=== PATIENT | female | born 1985 | race Caucasian/White ===

== ENCOUNTER 2023-02-16 13:38 | Outpatient (CLI) | payer BC, SELFPAY ==
--- NOTE | 2023-02-16 13:40 | CRLHL7_ITS ---
For Patients: As a result of the Cures Act, medical imaging exams and procedure reports are released immediately into your electronic medical record. You may view this report before your referring provider. If you have questions, please contact your health care provider. BILATERAL DIGITAL SCREENING MAMMOGRAM WITH TOMOSYNTHESIS AND COMPUTER-AIDED DETECTION CLINICAL HISTORY: Routine screening exam. COMPARISON: None. TECHNIQUE: Digital mammogram in CC and MLO projections including computer-aided detection (CAD). Tomosynthesis utilized. BREAST COMPOSITION: The breasts are heterogeneously dense, which may obscure small masses. FINDINGS: RIGHT Breast: No suspicious findings. LEFT Breast: Focal nodular density is present within the upper inner quadrant LEFT breast 6 cm from the nipple. IMPRESSION: LEFT breast asymmetry/mass. RECOMMENDATIONS: Additional mammographic views of the LEFT breast including 3D spot compression CC/MLO. LEFT breast ultrasound may also be required. BI-RADS Category 0: Incomplete: Need Additional Imaging Evaluation and/or Prior Mammograms for Comparison The [facility] will contact the patient for follow-up. A lay language report of this examination will be provided to the patient. Dictated by Kwasi Gallegos MD @ 02/17/2023 1:39:30 PM magdaj/Dictated by: Kwasi Gallegos MD @ 02/17/2023 1:39:00 PM (Electronically Signed)
--- OUTSIDE RECORDS SUMMARY | 2023-02-16 13:41 | XMS_ITS | Patient Health Record ---
Author Name Unknown Organization [facility] Address [address] [place] [address] Care Team Providers Care Records Management Associate Name Role Phone JACKI IRELAND Unavailable [phone] ALLERGIES Allergen (clinical drug ingredient) Drug/Non Drug Allergy documented on EMR Reaction Allergy Type Onset Date Status Substance with sulfonamide structure and antibacterial mechanism of action (substance) Sulfa Drugs (uncoded) nausea and vomiting Allergy Active Watermelon Watermelon (uncoded) stomach upset Allergy Active codeine Codeine hives Drug Allergy 11/20/2020 Active Shaniko Shaniko stomach upset Allergy Active morphine Morphine hives Drug Allergy 11/20/2020 Active RESULTS Component Value Reference Range Notes IRON, TIBC AND FERRITIN PANE L Reviewed date:12/17/2022 08:30:36 AM Interpretation: Performing Lab:JACINTO [facility] [place] [facility]ieselteScaleDBLakeview HospitalPlblVI[address] Live Rivas Notes/Report: 0 0 0 0 0 0 0 0 0 0 0 0 0 0 IRON, TOTAL 98 40-190 mcg/dL IRON BINDING CAPACITY 362 250-450 mc g/dL (calc) % SATURATION 27 16-45 % (calc) FERRITIN 20 16-154 ng/mL CELIAC DISEASE COMPREHENSIVE PANEL Reviewed date:12/18/2022 11:55:52 AM Interpretation: Performing Lab:JACINTO [facility] [address] [employer], [facility] ManorPoyaHX[address] Live Rivas Notes/Report: 0 0 0 0 0 0 0 0 0 0 0 0 0 0 INTERPRETATION No serological evidence of celiac disease. tTG IgA may normalize in individuals with celiac disease who maintain a gluten-free diet. Consider HLA DQ2 and DQ8 testing to rule out celiac disease. Celiac disease is extremely rare in the absence of DQ2 or DQ8. TISSUE TRANSGLUTAMINASE AB, IGA <1.0 Value Interpretation ----- <15.0 Antibody not detected > or = 15.0 Antibody detected IMMUNOGLOBULIN A 203 47-310 mg/dL THYROGLOBULIN PANEL Reviewed date:12/17/2022 10:52:42 AM Interpretation: Performing Lab:JACINTO [facility] FundPigafeL[address] Live Rivas Notes/Report: 0 0 0 0 0 0 0 0 0 0 0 0 0 0 THYROGLOBULIN ANTIBODIES 1 < or = 1 IU/mL THYROGLOBULIN 18.2 Reference Range: Intact Thyroid 2.8-40.9 Athyrotic <0.1 Note: Abnormal flagging is based on the reference interval for patients with intact thyroid. This test was performed using the Signal Data chemiluminescent method. Values obtained from different assay methods cannot be used interchangeably. Thyroglobulin levels, regardless of value, should not be interpreted as absolute evidence of the presence or absence of disease. For additional information, please refer to http://education.Xenon Arc.com/faq/AQZ925 (This link is being provided for informational/ educational purposes only.) THYROID PEROXIDASE ANTIBODIE S Reviewed date:12/17/2022 10:52:42 AM Interpretation: Performing Lab:JACINTO abusixL[address] Live Rivas Notes/Report: 0 0 0 0 0 0 0 0 0 0 0 0 0 0 THYROID PEROXIDASE ANTIBODIES 35 <9 IU/mL DHEA SULFATE Reviewed date:12/17/2022 08:30:36 AM Interpretation: Performing Lab:JACINTO abusixL[address] Live Rivas Notes/Report: 0 0 0 0 0 0 0 0 0 0 0 0 0 0 DHEA SULFATE 194 19-237 mcg/dL FOLATE, SERUM Reviewed date:12/17/2022 08:30:36 AM Interpretation: Performing Lab:[place]TO [place] [address] Live Mckenzie Rob Notes/Report: 0 0 0 0 0 0 0 0 0 0 0 0 0 0 FOLATE, SERUM 18.1 Reference Range Low: <3.4 Borderline: 3.4-5.4 Normal: >5.4 VITAMIN B12 Reviewed date:12/17/2022 08:30:36 AM Interpretation: Performing Lab:JACINTO [facility] [address] Live Mckenzie Rob Notes/Report: 0 0 0 0 0 0 0 0 0 0 0 0 0 0 VITAMIN B12 394 737-0583 pg/mL T4, FREE Reviewed date:12/17/2022 08:45:29 AM Interpretation: Performing Lab:JACINTO [facility] [place] [address] Live Jonah Rivas Notes/Report: 0 0 0 0 0 0 0 0 0 0 0 0 0 0 T4, FREE 1.2 0.8-1.8 ng/dL CORTISOL, TOTAL Reviewed date:12/17/2022 08:30:36 AM Interpretation: Performing Lab:JACINTO [facility] [place] [address] Live Jonah Rob Notes/Report: 0 0 0 0 0 0 0 0 0 0 0 0 0 0 CORTISOL, TOTAL 11.2 Reference Range: For 8 a.m.(7-9 a.m.) Specimen: 4.0-22.0 Reference Range: For 4 p.m.(3-5 p.m.) Specimen: 3.0-17.0 * Please interpret above results accordingly * TSH Reviewed date:12/17/2022 08:45:29 AM Interpretation: Performing Lab:JACINTO [facility] [place] [address] Live Jonah Rivas Notes/Report: 0 0 0 0 0 0 0 0 0 0 0 0 0 0 TSH 1.54 Reference Range > or = 20 Years 0.40-4.50 Ranges First trimester 0.26-2.66 Second trimester 0.55-2.73 Third trimester 0.43-2.91 T3, FREE Reviewed date:12/17/2022 08:30:36 AM Interpretation: Performing Lab:JACINTO [facility] [facility], [facility] HospitalUkgxHP[address] Live Mckenzie Rob Notes/Report: 0 0 0 0 0 0 0 0 0 0 0 0 0 0 T3, FREE 3.3 2.3-4.2 pg/mL QUESTASSURED 25-OH VIT D, (D 2,D3), LC/MS/MS Reviewed date:12/17/2022 08:45:53 AM Interpretation: Performing Lab:JACINTO, [facility]wat[facility] Clin[facility] Live Jonah Rob Notes/Report: 0 0 0 0 0 0 0 0 0 0 0 0 0 0 VITAMIN D,25-OH,TOTAL,IA 23 30-100 ng/mL Vitamin D Status 25-OH Vitamin D: Deficiency: <20 ng/mL Insufficiency: 20 - 29 ng/mL Optimal: > or = 30 ng/mL For 25-OH Vitamin D testing on patients on D2-supplementation and patients for whom quantitation of D2 and D3 fractions is required, the QuestAssureD(TM) 25-OH VIT D, (D2,D3), LC/MS/MS is recommended: order code 68843 (patients >2yrs). See Note 1 Note 1 For additional information, please refer to http://education.Lifecrowd.Edutor/faq/JSN208 (This link is being provided for informational/ educational purposes only.) HISTAMINE, PLASMA Reviewed date:12/23/2022 08:59:22 AM Interpretation: Performing Lab:ALESSANDRA, [facility],[address] BrandonBlue Mountain HospitalCA[address] Little Juarez MD,PhD,MAUREEN Notes/Report: 0 0 0 0 0 0 0 0 0 0 0 0 0 0 HISTAMINE, PLASMA <1.5 < OR = 1.8 ng/mL This test was performed using a kit that has not been cleared or approved by the FDA. The analytical performance characteristics of this test have been determined by [facility]. This test should not be used for diagnosis without confirmation by other medically established means. KETTY ALBICANS AB (IGG,IGA ,IGM) Reviewed date:12/28/2022 09:00:25 AM Interpretation: Performing Lab:ALESSANDRA [facility]/[place],[address] [address] Hot SpringsCbrmmvywtdKY[address] Little Juarez MD,PhD,MAUREEN Notes/Report: 0 0 0 0 0 0 0 0 0 0 0 0 0 0 C.ALBICANS IGG 1.0 C.ALBICANS IGA 0.9 C.ALBICANS IGM 0.7 REFERENCE RANGE: <1.0 INTERPRETIVE CRITERIA: <1.0 Antibody Not Detected > or = 1.0 Antibody Detected Systemic candidiasis is often characterized by markedly elevated levels of IgG, IgA, and IgM recognizing Ketty. However, interpretation of Ketty antibody results is complicated by antibody detection in approximately 40% of healthy individuals and up to 70% of patients positive for other fungal antibodies. Further, antibody responses may be blunted in immunocompromised patients at risk for systemic candidiasis. Ketty antibody levels should be considered within the context of clinical findings and results from other relevant laboratory tests, such as Ketty antigen detection and/or culture. This test was developed and its analytical performance characteristics have been determined by [facility]. It has not been cleared or approved by FDA. This assay has been validated pursuant to the CLIA regulations and is used for clinical purposes. COMPREHENSIVE METABOLIC PANE L Reviewed date:01/06/2023 10:11:42 AM Interpretation: Performing Lab:Luis CASEY-Kev[place] Tmvx[address] [facility] Kevan DickinsonFmwkOH[address] Live Rivas Notes/Report: 0 0 0 GLUCOSE 96 65-99 mg/dL Fasting reference interval UREA NITROGEN (BUN) 16 7-25 mg/dL CREATININE 0.60 0.50-0.97 mg/dL EGFR 117 > OR = 60 mL/min/1.73m2 BUN/CREATININE RATIO SEE NOTE: 6-22 (calc) Not Reported: BUN and Creatinine are within reference range. SODIUM 139 135-146 mmol/L POTASSIUM 4.8 3.5-5.3 mmol/L CHLORIDE 103 98-110 mmol/L CARBON DIOXIDE 28 20-32 mmol/L CALCIUM 9.4 8.6-10.2 mg/dL PROTEIN, TOTAL 7.3 6.1-8.1 g/dL ALBUMIN 4.3 3.6-5.1 g/dL GLOBULIN 3.0 1.9-3.7 g/dL (calc) ALBUMIN/GLOBULIN RATIO 1.4 1.0-2.5 (calc) BILIRUBIN, TOTAL 0.7 0.2-1.2 mg/dL ALKALINE PHOSPHATASE 52 31-125 U/L AST 14 10-30 U/L ALT 13 6-29 U/L HEMOGLOBIN A1c Reviewed date:01/06/2023 02:26:20 PM Interpretation: Performing Lab:JACINTO [facility]-[place] Jjek[address] [facility], [facility] HospitalYuvgKU[address] Live Rivas Notes/Report: 0 0 0 HEMOGLOBIN A1c 5.3 <5.7 % of total Hgb For the purpose of screening for the presence of diabetes: <5.7% Consistent with the absence of diabetes 5.7-6.4% Consistent with increased risk for diabetes (prediabetes) > or =6.5% Consistent with diabetes This assay result is consistent with a decreased risk of diabetes. Currently, no consensus exists regarding use of hemoglobin A1c for diagnosis of diabetes in children. According to [place] Diabetes Association (ADA) guidelines, hemoglobin A1c <7.0% represents optimal control in non- diabetic patients. Different metrics may apply to specific patient populations. Standards of Medical Care in Diabetes(ADA). NO COLLECTION DATE RECEIVED. WE HAVE USED THE DATE THE SPECIMEN WAS RECEIVED BY THIS LABORATORY THE COLLECTION DATE. IF THIS IS INCORRECT, PLEASE CONTACT CLIENT SERVICES. PHONE NUMBER: [phone] INSULIN Reviewed date:01/06/2023 02:26:20 PM Interpretation: Performing Lab:JACINTO [facility]-[place] Z[address] [facility], [facility] HospitalLtkzRB[address] Live Rivas Notes/Report: 0 0 0 INSULIN 9.0 Reference Range < or = 18.4 Risk: Optimal < or = 18.4 Moderate NA High >18.4 Adult cardiovascular event risk category cut points (optimal, moderate, high) are based on Insulin Reference Interval studies performed at [facility] in 2021. REASON FOR REFERRAL No Information MEDICATIONS Medication SIG (Take, Route, Fr equency, Duration) Notes Start Date End Date Status Vitamin D3 + K 5,000IU 1 capsule by mout h once daily for 90 days 01/05/2023 Active Coromega 650mg Active Chelated iron 30mg one tablet by mouth daily during menstrual cycles 01/05/2023 Active SOCIAL HISTORY Tobacco Use: Social History Observation Description Date Details (start date - stop date) Former Smoker NA - NA Sex Assigned At : Social History Observation Description Sex Assigned At Unknown Tobacco Use/Smoking Question Answer Notes Are you a former smoker How long has it been since you last smoked? > 10 years Alcohol Screen (Audit-C) Question Answer Notes Did you have a drink contain ing alcohol in the past year? Yes How often did you have a dri nk containing alcohol in the past year? 2 to 4 times a month (2 points) How many drinks did you have on a typical day when you were drinking in the past year? 1 or 2 drinks (0 point) How often did you have 6 or more drinks on one occasion in the past year? 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 Thyroid func tion tests abnormal (188629560) Problem Stress (F43.9) Active confirmed Stress (30870469) Problem Seasonal allergies (J30.2) Active confirmed Seasonal allerg y (285843870) Problem SURESH (generalized anxiety disorder) (F41.1) Active confirmed Generalized anxiety disorder (94774580) Problem Adult ADHD (F90.9) Active confirmed Attention defic it hyperactivity disorder (309134671) VITAL SIGNS Temperature 98.3 degrees Fahrenheit 12/16/2022 Blood pressure diastolic 70 mm Hg 01/05/2023 Height 71 in 01/05/2023 Blood pressure systolic 118 mm Hg 01/05/2023 Weight 194.8 lbs 12/16/2022 BMI 27.17 kg/m2 12/16/2022 Encounters Encounter Location Date Provider Diagnosis [facility] [address] [facility] [address] [place] [place] [address] 12/16/2022 JACKI IRELAND Weight gain R63.5 ; Generalized anxiety disorder F41.1 ; Adult ADHD F90.9 ; Fatigue R53.83 ; Seasonal allergies J30.2 ; Stress F43.9 and GI symptoms R19.[address] [address] 12/16/2022 JACKI IRELAND Fatigue R53.83 ; GI symptoms R19.8 ; Stress F43.9 and Seasonal allergies J30.[address] [address] 01/05/2023 JACKI IRELAND Fatigue R53.83 ; GI symptoms R19.8 ; Stress F43.9 ; Seasonal allergies J30.2 ; 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 ; Low iron stores R79.0 ; Anti-TPO antibodies present R89.4 and Vitamin D deficiency E55.[address] [address] 01/05/2023 [facility] IRELAND [facility] [address] [place] [address] 01/05/2023 JACKI IRELAND ASSESSMENTS Encounter Date Diagnosis Assessment Notes Treatment Notes Treatment Clinical Notes 12/16/2022 Weight gain (ICD-10 - R63.5) 12/16/2022 Generalized anxiety disorder (ICD-10 - F41.1) 12/16/2022 Fatigue (ICD-10 - R53.83) 01/05/2023 Weight gain (ICD-10 - R63.5) 01/05/2023 Fatigue (ICD-10 - R53.83) FOLATE; 18.1 *Optimal level. VITAMIN B12: 520 *Discussed benefits of B12 with energy, moods, brain function and nerve health. Vitamin B12 typically comes from animal sources of protein (fish, meat, poultry, eggs), fortified foods (cereals, nut milks). *Increase intake of B12 rich foods. 12/16/2022 GI symptoms (ICD-10 - R19.8) 12/16/2022 Adult ADHD (ICD-10 - F90.9) 01/05/2023 GI symptoms (ICD-10 - R19.8) CELIAC DISEASE PANEL; TISSUE TRANSGLUTAMINA, IGA; <1.0 IMMUNOGLOBULIN A; 203 *Normal levels. 12/16/2022 Fatigue (ICD-10 - R53.83) 12/16/2022 Stress (ICD-10 - F43.9) 01/05/2023 Stress (ICD-10 - F43.9) ADRENAL: The adrenal system produces hormones that are important for daytime energy, blood pressure, sleep, appetite and many other functions in the body. The adrenals protect the body during stress. In high states or assisted stress hormones can become unbalanced. DHEA: 194 Cortisol: 11.2 *Optimal levels. 01/05/2023 Seasonal allergies (ICD-10 - J30.2) HISTAMINE; <1.5 12/16/2022 Seasonal allergies (ICD-10 - J30.2) 12/16/2022 Seasonal allergies (ICD-10 - J30.2) 01/05/2023 Low iron stores (ICD-10 - R79.0) FERRITIN is how the body stores iron and low levels can cause fatigue and increased inflammation. Iron, TIBC and Ferritin Panel: %Saturation:27 Ferritin:20 Iron, Binding Capacity: 362 Iron, total: 98 *Start chelated iron 30 mg during menstrual cycle. 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 Anti-Ketty Food Plan. Suggested to follow as closely as possible, ideally for at least 3 months. Includes avoiding sugars (monk fruit appropriate alternative), fermented foods, alcohols. 2.) Herbal Support, candicid support through orthomolecular. This would be a 6-12 month long process. If herbal support alone, sympom relief likely will take longer. If medications are started, this is still suggested after treatment for at least 6 months for maintenance. 3.) Anti-fungal medication, called Nystatin. This just controls the fungal overgrowth. This would be two tablets, three times daily. No additional blood work needed before initiating. 4.) Anti-fungal medication, call Diflucan. This will kill the fungal overgrowth. This would be 100mg twice daily. Before starting this one, a comprehensive metabolic panel will need to be completed to check creatinine levels and the liver. Additional supplements: - Start Milk thistle, daily, to support liver. More importance if diflucan choosen. - Start L-glutamine. Amino acid that protects gut lining. - Optional SBI protect. This is a immunoglobulin that will protect from leaky gut or the increased permeability that is happening right now with the dysbiosis due to the ketty overgrowth. - STOP probiotic. Only probiotic that would be able to be on while on treatment, would be a spore probiotic. All others will feed the ketty. Orthomolecular brand does carry a Ortho Spore IG that include a spore probiotic as well as the immunoglobulin, SBI protect, if you'd like. - Digestion support. Option to start digestive enzymes, 20 minutes before largest meal, daily. It is possible that symptoms may worsen in the first 1-2 weeks of treatement before they start improving. This is called a Herxheimer reaction. Supplements above, as well as daily bowel movements, will be helpful at prevention. If this does occur, please call or message your provider. https://www.Sasets.com/pro duct/candicid-forte https://nutritionre view.org//cand pnv-cmixd-qryqwafhjg- program-part2/ Discussed avoiding gluten in diet. Recommended to read all labels and avoid gluten foods including wheat, rye, barley. Non gluten grains are rice, flax, oats, quinoa and others. [email or web address]://Insights.[email or web address]/ 01/05/2023 Anti-TPO antibodies present (ICD-10 - R89.4) AUTOIMMUNE THYROID: Thyroglobulin Panel, Antibodies; 1 Thyroglobulin; 18.2 Thyroid Peroxidase Antibodies; 35H THYROID: The thyroid is responsible for metabolism, heat/cold regulation, gastrointestinal motility, moods and inflammation. T4 and T3 regulate these systems, and TSH is a messenger from the brain to thyroid to increase or decrease thyroid activity. This level may not always accurately reflect thyroid function. T4 level: 1.2 T3 level: 3.3 TSH level: 1.54 *Eliminate gluten from diet. 12/16/2022 Stress (ICD-10 - F43.9) 12/16/2022 GI symptoms (ICD-10 - R19.8) 01/05/2023 Vitamin D deficiency (ICD-10 - E55.9) Vitamin D3 improves energy, moods, immunity, bone health and overall healing. Vitamin D is essential for mitochondrial function of each of the body's cells. VITAMIN D3 : 23L *Start vitamin D 5,000 IU + K2 daily. 12/16/2022 Other -The performing lab company may be billing your insurance for your lab services. Any statements received from them would need to be discussed with or paid to them. Labs will be drawn at today's appointment. To schedule a follow up appointment in 2 weeks for a lab review with Jacki HU 4 minutes were spent reviewing past and present symptoms, previous testing and treatment. 51 minutes were spent face to face with the patiet today formulating plan of care based on factors of symptoms, HPI, ROS, including ordering tests to assess noted issues. , 6 minutes were spent in charting and documenting the patient's visit following today's appointment., 61 minutes spent in total provider care time. Documentation was performed by Donnie Black MA under the direct supervision of MAYTE Hamlin 12/16/2022 Other Today labs were drawn Kayla Hanson CMA. Patient's skin was cleansed with an alcohol pad prior to venipuncture. Venipuncture site was properly dressed. Patient will return when results are received to review and discuss treatment plan accordingly 01/05/2023 Other *Please see lab results in your patient portal. -The performing lab company may be billing your insurance for your lab services. Any statements received from them would need to be discussed with or paid to them. Follow up pending blood draw results. Remaining labs have been reviewed with the patient and are within acceptable/ optimal levels Documentation was performed by Kayla Hanson CMA under the direction of Jacki HU 5 minutes were spent reviewing the patient's labs and test results, reviewing last treatment plan. 19 minutes were spent with the patient today adjusting plan of care based on symptoms and test results, addressing lifestyle, supplements, and medications as indicated. , 8 minutes were spent in charting and documenting the patient's visit following today's appointment., 32 minutes spent in total provider care time. 01/05/2023 Other Today labs were drawn Kayla Hanson CMA. Patient's skin was cleansed with an alcohol pad prior to venipuncture. Venipuncture site was properly dressed. Patient will return when results are received to review and discuss treatment plan accordingly PLAN OF TREATMENT No Information Insurance Providers Payer Name Payer Address Payer Phone Subscriber Number Group Number Insured Name Patient Relationship to Insured Coverage Start Date Coverage End Date [facility] [address] [address] [place], [place] [id number] PERI ROBINS Self - patient is the insured 8 MEDICAL (GENERAL) HISTORY Medical History History ICD Code Asthma J45.909 Seasonal allergies J30.2 SURESH (generalized anxiety disorder) F41.1 Adult ADHD F90.9 Surgical History Surgery Date(Month/Year) hemorrhoidectomy 2008 tonsillectomy and adenoidectomy Knee Surgery (Anterior Cruciate Ligament Repair) 2001 & 2010
== END 2023-02-16 13:39 | disposition home or self-care (01) ==
LOC: MAMMO 13:39
PROVIDERS: Visit Provider Physician Assistant
DX: Z12.31 Encounter for screening mammogram for malignant neoplasm of breast (principal); N63.20 Unspecified lump in the left breast, unspecified quadrant; R92.2 Inconclusive mammogram
CPT/HCPCS: 77063; 77067

== ENCOUNTER 2023-02-24 09:35 | Outpatient (CLI) | payer BC, SELFPAY ==
--- OUTSIDE RECORDS SUMMARY | 2023-02-24 09:38 | XMS_ITS | Patient Health Record ---
Author Name Unknown Organization [facility] Address [address] [place] [address] Care Team Providers Care Client Liaison Name Role Phone JACKI IRELAND Unavailable [phone] ALLERGIES Allergen (clinical drug ingredient) Drug/Non Drug Allergy documented on EMR Reaction Allergy Type Onset Date Status Substance with sulfonamide structure and antibacterial mechanism of action (substance) Sulfa Drugs (uncoded) nausea and vomiting Allergy Active Watermelon Watermelon (uncoded) stomach upset Allergy Active codeine Codeine hives Drug Allergy 11/20/2020 Active Kimmell Kimmell stomach upset Allergy Active morphine Morphine hives Drug Allergy 11/20/2020 Active RESULTS Component Value Reference Range Notes IRON, TIBC AND FERRITIN PANE L Reviewed date:12/17/2022 08:30:36 AM Interpretation: Performing Lab:JACINTO [facility] Rem[facility] TechnologiesteEQALOrtonville HospitalTsghMQ[address] Live Rivas Notes/Report: 0 0 0 0 0 0 0 0 0 0 0 0 0 0 IRON, TOTAL 98 40-190 mcg/dL IRON BINDING CAPACITY 362 250-450 mc g/dL (calc) % SATURATION 27 16-45 % (calc) FERRITIN 20 16-154 ng/mL CELIAC DISEASE COMPREHENSIVE PANEL Reviewed date:12/18/2022 11:55:52 AM Interpretation: Performing Lab:JACINTO [facility]13[address] Remind Technologiestel [facility], [facility] ClinicSzmvCP[address] Live Rivas Notes/Report: 0 0 0 0 [...] Reviewed date:12/17/2022 10:52:42 AM Interpretation: Performing Lab:JACINTO WorkHoundShenandoah StudiosL[address] Live Rivas Notes/Report: 0 0 0 0 0 0 0 0 0 0 0 0 0 0 THYROGLOBULIN ANTIBODIES 1 < or = 1 IU/mL THYROGLOBULIN 18.2 Reference Range: Intact Thyroid 2.8-40.9 Athyrotic <0.1 Note: Abnormal flagging is based on the reference interval for patients with intact thyroid. This test was performed using the Vanu chemiluminescent method. Values obtained from different assay methods cannot be used interchangeably. Thyroglobulin levels, regardless of value, should not be interpreted as absolute evidence of the presence or absence of disease. For additional information, please refer to http://education.Preventsys.com/faq/VFX913 (This link is being provided for informational/ educational purposes only.) THYROID PEROXIDASE ANTIBODIE S Reviewed date:12/17/2022 10:52:42 AM Interpretation: Performing Lab:JACINTO MCK CommunicationsL[address] Live Rivas Notes/Report: 0 0 0 0 0 0 0 0 0 0 0 0 0 0 THYROID PEROXIDASE ANTIBODIES 35 <9 IU/mL DHEA SULFATE Reviewed date:12/17/2022 08:30:36 AM Interpretation: Performing Lab:JACINTO MCK CommunicationsL[address] Live Rivas Notes/Report: 0 0 0 0 0 0 0 0 0 0 0 0 0 0 DHEA SULFATE 194 19-237 mcg/dL FOLATE, SERUM Reviewed date:12/17/2022 08:30:36 AM Interpretation: Performing Lab:JACINTO [place] [address] Live Mckenzie Rob Notes/Report: 0 0 0 0 0 0 0 0 0 0 0 0 0 0 FOLATE, SERUM 18.1 Reference Range Low: <3.4 Borderline: 3.4-5.4 Normal: >5.4 VITAMIN B12 Reviewed date:12/17/2022 08:30:36 AM Interpretation: Performing Lab:JAC[place]TO [place] [address] Live Mckenzie Rob Notes/Report: 0 0 0 0 0 0 0 0 0 0 0 0 0 0 VITAMIN B12 449 871-7453 pg/mL T4, FREE Reviewed date:12/17/2022 08:45:29 AM Interpretation: Performing Lab:JAC[place]TO [place] [address] Live Jonah Rivas Notes/Report: 0 0 0 0 0 0 0 0 0 0 0 0 0 0 T4, FREE 1.2 0.8-1.8 ng/dL CORTISOL, TOTAL Reviewed date:12/17/2022 08:30:36 AM Interpretation: Performing Lab:JAC[place]TO [place] [address] Live Jonah Rob Notes/Report: 0 0 0 0 0 0 0 0 0 0 0 0 0 0 CORTISOL, TOTAL 11.2 Reference Range: For 8 a.m.(7-9 a.m.) Specimen: 4.0-22.0 Reference Range: For 4 p.m.(3-5 p.m.) Specimen: 3.0-17.0 * Please interpret above results accordingly * TSH Reviewed date:12/17/2022 08:45:29 AM Interpretation: Performing Lab:[place]AC[place]TO [place] [address] Live Jonah Rivas Notes/Report: 0 0 0 0 0 0 0 0 0 0 0 0 0 0 TSH 1.54 Reference Range > or = 20 Years 0.40-4.50 Ranges First trimester 0.26-2.66 Second trimester 0.55-2.73 Third trimester 0.43-2.91 T3, FREE Reviewed date:12/17/2022 08:30:36 AM Interpretation: Performing Lab:[facility]INTO [facility] [facility], [facility] HospitalEfuhKE[address] Live Mckenzie Rob Notes/Report: 0 0 0 0 0 0 0 0 0 0 0 0 0 0 T3, FREE 3.3 2.3-4.2 pg/mL QUESTASSURED 25-OH VIT D, (D 2,D3), LC/MS/MS Reviewed date:12/17/2022 08:45:53 AM Interpretation: Performing Lab:JACINTO, [facility] Clin[facility] Live Jonah Rob Notes/Report: 0 0 0 [...] D, (D2,D3), LC/MS/MS is recommended: order code [id number] (patients >2yrs). See Note 1 Note 1 For additional information, please refer to http://education.Giv.to.SoothEase/faq/JFA226 (This link is being provided for informational/ educational purposes only.) HISTAMINE, PLASMA Reviewed date:12/23/2022 08:59:22 AM Interpretation: Performing Lab:ALESSANDRA, [facility],[address] BrandonCache Valley HospitalCA[address] Little Juarez MD,PhD,MAUREEN Notes/Report: 0 0 0 0 0 0 0 0 0 0 0 0 0 0 HISTAMINE, PLASMA <1.5 < OR = 1.8 ng/mL This test was performed using a kit that has not been cleared or approved by the FDA. The analytical performance characteristics of this test have been determined by [facility]. This test should not be used for diagnosis without confirmation by other medically established means. KETTY ALBICANS AB (IGG,IGA ,IGM) Reviewed date:12/28/2022 09:00:25 AM Interpretation: Performing Lab:ALESSANDRA [facility],[address] [address] InwoodBonwilxdilPX[address] Little Juarez MD,PhD,MAUREEN Notes/Report: 0 0 0 [...] analytical performance characteristics have been determined by [facility]. It has not been cleared or approved by FDA. This assay has been validated pursuant to the CLIA regulations and is used for clinical purposes. COMPREHENSIVE METABOLIC PANE L Reviewed date:01/06/2023 10:11:42 AM Interpretation: Performing Lab:Luis CASEY-Kevan Dsvh40[address] [facility] Kevan DickinsonTgahZY[address] Live Rivas Notes/Report: 0 0 0 GLUCOSE [...] Reviewed date:01/06/2023 02:26:20 PM Interpretation: Performing Lab:JACINTO [facility] Aeur[address] [facility], [facility] HospitalOwfaIQ[address] Live Rivas Notes/Report: 0 0 0 HEMOGLOBIN [...] diagnosis of diabetes in children. According to [place] Diabetes Association (ADA) guidelines, hemoglobin A1c <7.0% represents optimal control in non- diabetic patients. Different metrics may apply to specific patient populations. Standards of Medical Care in Diabetes(ADA). NO COLLECTION DATE RECEIVED. WE HAVE USED THE DATE THE SPECIMEN WAS RECEIVED BY THIS LABORATORY THE COLLECTION DATE. IF THIS IS INCORRECT, PLEASE CONTACT CLIENT SERVICES. PHONE NUMBER: [phone] INSULIN Reviewed date:01/06/2023 02:26:20 PM Interpretation: Performing Lab:JACINTO [facility] Wrgv[address] [facility], [facility] HospitalCdxmFE[address] Live Rivas Notes/Report: 0 0 0 INSULIN 9.0 Reference Range < or = 18.4 Risk: Optimal < or = 18.4 Moderate NA High >18.4 Adult cardiovascular event risk category cut points (optimal, moderate, high) are based on Insulin Reference Interval studies performed at [facility] in 2021. 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 Thyroid func tion tests abnormal (272514340) Problem Stress (F43.9) Active confirmed Stress (94295355) Problem Seasonal allergies (J30.2) Active confirmed Seasonal allerg y (743842294) Problem SURESH (generalized anxiety disorder) (F41.1) Active confirmed Generalized anxiety disorder (66656516) Problem Adult ADHD (F90.9) Active confirmed Attention defic it hyperactivity disorder (825751904) VITAL SIGNS Temperature 98.3 degrees Fahrenheit 12/16/2022 Blood pressure diastolic 70 mm Hg 01/05/2023 Height 71 in 01/05/2023 Blood pressure systolic 118 mm Hg 01/05/2023 Weight 194.8 lbs 12/16/2022 BMI 27.17 kg/m2 12/16/2022 Encounters Encounter Location Date Provider Diagnosis [facility] [address] [facility] [address] [place] [address] 12/16/2022 JACKI IRELAND Weight gain R63.5 ; Generalized anxiety disorder F41.1 ; Adult ADHD F90.9 ; Fatigue R53.83 ; Seasonal allergies J30.2 ; Stress F43.9 and GI symptoms R19.[address] [address] 12/16/2022 JACKI IRELAND Fatigue R53.83 ; GI symptoms R19.8 ; Stress F43.9 and Seasonal allergies J30.[address] [address] 01/05/2023 JACKI IRELAND Fatigue R53.83 ; GI symptoms R19.8 ; Stress F43.9 ; Seasonal allergies J30.2 ; 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 [address] [place] [address] 01/05/2023 JACKI IRELAND ASSESSMENTS Encounter Date Diagnosis [...] body during stress. In high states or emt intermediate stress hormones can become unbalanced. DHEA: 194 [...] occur, please call or message your provider. https://[email or web address]/pro duct/candicid-forte https://nutritionre view.org//cand ymt-wvwor-ajyeajzqsa- program-part2/ Discussed avoiding gluten in diet. Recommended to read all labels and avoid gluten foods including wheat, rye, barley. Non gluten grains are rice, flax, oats, quinoa and others. [email or web address] 01/05/2023 Anti-TPO antibodies present (ICD-10 - R89.4) [...] Insured Coverage Start Date Coverage End Date [facility] [address] [address] [place], [place] [id number] PERI ROBINS Self - patient is the insured 8 MEDICAL (GENERAL) HISTORY Medical History History ICD Code Asthma J45.909 Seasonal allergies J30.2 SURESH (generalized anxiety disorder) F41.1 Adult ADHD F90.9 Surgical History Surgery Date(Month/Year) hemorrhoidectomy 2008 tonsillectomy and adenoidectomy Knee Surgery (Anterior Cruciate Ligament Repair) 2001 & 2010
--- NOTE | 2023-02-24 09:45 | CRLHL7_ITS ---
For Patients: As a result of the Cures Act, medical imaging exams and procedure reports are released immediately into your electronic medical record. You may view this report before your referring provider. If you have questions, please contact your health care provider. DIGITAL DIAGNOSTIC LEFT MAMMOGRAM USING TOMOSYNTHESIS AND COMPUTER-AIDED DETECTION LEFT BREAST ULTRASOUND CLINICAL HISTORY: LEFT breast mass/asymmetry. COMPARISON: 02/16/2023. TECHNIQUE: Digital LEFT mammogram in two projections. Tomosynthesis and CAD utilized. Real-time ultrasound imaging of LEFT breast with imaging documentation. BREAST COMPOSITION: The breast is heterogeneously dense, which may obscure small masses. FINDINGS: 3D spot compression CC/MLO LEFT breast mammogram images submitted. Persistent nodular density LEFT breast. No architectural distortion. Benign calcifications. Targeted LEFT breast ultrasound performed at 11 o`clock 7 cm from the nipple. In this location, there is a circumscribed anechoic simple cyst with increased through-transmission measuring 1.2 x 0.7 x 1.0 cm. No abnormal vascularity. IMPRESSION: Simple cyst LEFT breast measuring 1.2 cm 11 o`clock 7 cm from the nipple. No suspicious findings. RECOMMENDATIONS: Routine annual screening mammography. Results and recommendations discussed with the patient. BI-RADS Category 2: Benign A lay language report of this examination will be provided to the patient. Dictated by Kwasi Gallegos MD @ 02/24/2023 12:53:10 PM /Dictated by: Kwasi Gallegos MD @ 02/24/2023 12:53:00 PM (Electronically Signed)
--- NOTE | 2023-02-24 10:15 | CRLHL7_ITS ---
For Patients: As a result of the Cures Act, medical imaging exams and procedure reports are released immediately into your electronic medical record. You may view this report before your referring provider. If you have questions, please contact your health care provider. PLEASE SEE DIGITAL DIAGNOSTIC LEFT MAMMOGRAM PERFORMED SAME DAY CRL:[email or web address] veloz/Dictated by: Kwasi Gallegos MD @ 02/24/2023 12:53:00 PM (Electronically Signed)
== END 2023-02-24 09:36 | disposition home or self-care (01) ==
LOC: MAMMO 09:36
PROVIDERS: Visit Provider Physician Assistant
DX: N63.20 Unspecified lump in the left breast, unspecified quadrant (principal); R92.8 Other abnormal and inconclusive findings on diagnostic imaging of breast
CPT/HCPCS: 76642; 77065; G0279

== ENCOUNTER 2023-04-02 13:59 | Outpatient (CLI) | payer BC, SELFPAY ==
--- NOTE | 2023-04-02 14:00 | CRLHL7_ITS ---
For Patients: As a result of the Century Cures Act, medical imaging exams and procedure reports are released immediately into your electronic medical record. You may view this report before your referring provider. If you have questions, please contact your health care provider. INDICATION: Pelvic pain TECHNIQUE: Transabdominal and transvaginal scanning was performed. Transvaginal scanning was performed to optimally evaluate the endometrium and adnexa. Ovarian blood flow was evaluated with color-flow and pulsed Doppler. COMPARISON: None. FINDINGS: The uterus is normal in size and shape. The uterus measures 7.5 x 4.4 x 4.5 cm. No uterine mass is evident. The endometrial stripe is normal in thickness at 4 mm. An IUD is present in the uterine cavity and appears to be properly positioned. A 4.3 x 3.7 x 3.4 cm complex left ovarian cystic lesion containing uniform low level echoes is demonstrated. The right ovary measures 3.3 x 2.2 x 2.1 cm and left 4.7 x 3.7 x 3.4 cm. Ovarian blood flow is demonstrated with color-flow and pulsed Doppler. No adnexal mass is evident. No free fluid is demonstrated. IMPRESSION: 1. Complex 4.3 cm left ovarian cystic lesion, likely a hemorrhagic cyst. A 6-12 week follow up ultrasound is recommended. 2. Properly positioned IUD. Dictated by Rob Ratliff MD @ 04/05/2023 8:53:13 AM (Electronically Signed)
--- OUTSIDE RECORDS SUMMARY | 2023-04-02 14:01 | XMS_ITS | Clinical Summary ---
Author Name Unknown Organization [employer] [facility] Address [place], [place] [address] Care Team Providers Care Housing Coordinator Name Role Phone Pcp, No Primary Care Provider Unavailabl e Allergies Active Allergy Reactions Criticality Noted Date Comments Codeine Rash High 11/20/2020 hallucinations hallucinations Morphine Rash High 11/20/2020 Medications Medication Sig Dispensed Refills Start Date End Date Status dexAMETHasone (DECADRON) 4 mg tabletIndications:Ac maurice non-recurrent sphenoidal sinusitis Take 1 tablet by mouth twice daily for 3 days for congestion 6 Tablet 0 05/16/2022 Active Social History Tobacco Use Types Packs/Day Years Used Date Smoking Tobacco: Never Smokeless Tobacco: Never Tobacco Cessation:Counseling Given: Not Answered Sex and Gender Information Value Date Recorded Sex Assigned at Not on file Gender Identity Not on file Sexual Orientation Not on file Obstetrics History Last Filed Vital Signs Vital Sign Reading Time Taken Comments Blood Pressure 114/83 05/16/2022 1:12 PM STAND UP COMEDIAN Pulse 99 05/16/2022 1:12 PM STAND UP COMEDIAN Temperature 37.3 ??C (99.1 ??F) 05/16/2022 1:12 PM CS T Respiratory Rate 16 05/16/2022 1:12 PM STAND UP COMEDIAN Oxygen Saturation 100% 05/16/2022 1:12 PM STAND UP COMEDIAN Inhaled Oxygen Concentration - - Weight 81.6 kg (180 lb) 05/16/2022 1:12 PM STAND UP COMEDIAN Height 180.3 cm (5' 11) 05/16/2022 1:12 PM STAND UP COMEDIAN Body Mass Index 25.1 05/16/2022 1:12 PM STAND UP COMEDIAN Plan of Treatment Health Maintenance Due Date Last Done Comments Tdap 1994 Depression screening for age 12+ 1995 HIV for age 15-65 1998 Hepatitis C screening for ag e 18-79 2001 Tetanus booster 2003 COVID-19 vaccine series ( season) 2022 02/15/2021 Influenza for age 9-49 11/13/2022 BMI (ht and wt on same day) for age 18+ 05/17/2023 05/16/2022 Pap test for age 21-65 08/17/2025 , 08/17/2022 Pneumococcal series for age 6-64 Aged Out No longer eligible b ased on patient's age to complete this topic Care Teams Housing Coordinator Relationship Specialty Start Date End Date Pcp, No . PCP - General 05/16/22
--- OUTSIDE RECORDS SUMMARY | 2023-04-02 14:01 | XMS_ITS | Clinical Summary ---
Author Name Unknown Organization [facility] Address [address] [place] [address] Care Team Providers Care Soapstoner Name Role Phone Clinic, [facility] Primary Care Pro vider Palak CosbyM, Podiatry /Foot and Ankle Surgery Unavailable Allergies Active Allergy Reactions Criticality Noted Date Comments Codeine Rash High 11/20/2020 hallucinations Morphine Rash High 11/20/2020 Medications Medication Sig Dispensed Refills Start Date End Date Status Probiotic Product (PROBIOTIC ADVANCED PO) 0 Active Social History Tobacco Use Types Packs/Day Years Used Date Smoking Tobacco: Never Smokeless Tobacco: Never Adolescent Education Answer Date Record ed Getting School Help Needed Not on file 12/05 Sex and Gender Information Value Date Recorded Sex Assigned at Not on file Gender Identity Not on file Sexual Orientation Not on file Last Filed Vital Signs Vital Sign Reading Time Taken Comments Blood Pressure 124/78 11/09/2021 1:07 AM CDT Pulse 86 11/09/2021 1:07 AM CDT Temperature 36.9 ??C (98.5 ??F) 11/09/2021 1:07 AM CD T Respiratory Rate 20 11/09/2021 1:07 AM CDT Oxygen Saturation 99% 11/09/2021 1:07 AM CDT Inhaled Oxygen Concentration - - Weight 81.6 kg (180 lb) 11/18/2021 9:40 AM CDT Height 180.3 cm (5' 11) 11/18/2021 9:40 AM CDT Body Mass Index 25.1 11/18/2021 9:40 AM CDT Plan of Treatment Health Maintenance Due Date Last Done Comments ADVANCE CARE PLANNING 1983 ANNUAL REVIEW OF HM ORDERS 1983 HEPATITIS B IMMUNIZATION (1 of 3 - 3-dose series) 1983 YEARLY PREVENTIVE VISIT 1983 HIV SCREENING 1998 HEPATITIS C SCREENING 2001 PAP 01/29/2004 DTAP/TDAP/TD IMMUNIZATION (1 - Tdap) 01/29/2008 COVID-19 Vaccine (2 - 2022-2 4 season) 2022 02/15/2021 INFLUENZA VACCINE (#1) 2022 PHQ-2 (once per calendar year) 2023 HPV IMMUNIZATION Aged Out No longer e ligible based on patient's age to complete this topic IPV IMMUNIZATION Aged Out No longer e ligible based on patient's age to complete this topic MENINGITIS IMMUNIZATION Aged Out No l onger eligible based on patient's age to complete this topic Pneumococcal Vaccine: Pediat rics (0 to 5 Years) and At-Risk Patients (6 to 64 Years) Aged Out No longer eligi ble based on patient's age to complete this topic RSV MONOCLONAL ANTIBODY Aged Out No l onger eligible based on patient's age to complete this topic Care Teams Soapstoner Relationship Specialty Start Date End Date Clinic, [facility] [address] [place], [place] [id number] PCP - General 11/09/21 Palak Cosby DPM, Podiatry/Foot and Ankle Surgery [address] [place] [address] Assigned Musculoskeletal Provider 11/22/21
--- OUTSIDE RECORDS SUMMARY | 2023-04-02 14:01 | XMS_ITS | Clinical Summary ---
Author Name Unknown Organization [facility] Address [address] [place] [address] Care Team Providers Care Protection Specialist Name Role Phone Unavailable Primary Care Provider Unavailabl e Source Comments You are receiving this document as you are listed as the primary care provider,follow-up provider, or the patient has been referred to you for consultation.This is in compliance with the Medicare andMedicaid EHR Incentive Program,which states Providers who transition their patient to another setting of careor provider of care or refers their patient to another provider of care shouldprovide summary care record for each transition of care or referral. [facility] Allergies Active Allergy Reactions Criticality Noted Date Comments Codeine Rash High 11/20/2020 hallucinations Morphine Rash High 11/20/2020 Medications No known medications Active Problems No known active problems Family History Medical History Relation Name Comments Cancer Father Cancer Mother Cancer, Breast Maternal Aunt Cancer, Breast Maternal Grandmother Cancer, Breast Paternal Aunt Cancer, Ovary Negative Family History Relation Name Status Comments Father Alive skin Mother Alive myelotisplastic syndrome Maternal Aunt Maternal Grandmother Paternal Aunt Social History Tobacco Use Types Packs/Day Years Used Date Smoking Tobacco: Never Smokeless Tobacco: Never Alcohol Use Standard Drinks/Week Comments Yes 0 (1 standard drink = 0.6 oz pur e alcohol) PHQ-2 Answer Date Recorded PHQ-2 Score 0 11/20/2020 Sex and Gender Information Value Date Recorded Sex Assigned at Not on file Gender Identity Not on file Sexual Orientation Not on file Last Filed Vital Signs Vital Sign Reading Time Taken Comments Blood Pressure 120/89 11/20/2020 10:43 AM CDT Pulse 97 11/20/2020 10:43 AM CDT Temperature - - Respiratory Rate 16 11/20/2020 10:43 AM CDT Oxygen Saturation - - Inhaled Oxygen Concentration - - Weight 83.9 kg (185 lb) 11/20/2020 10:43 AM CDT Height 180.3 cm (5' 11) 11/20/2020 10:43 AM CDT Body Mass Index 25.8 11/20/2020 10:43 AM CDT Plan of Treatment Health Maintenance Due Date Last Done Comments Cervical Cancer Screening Due 1983 Hep C Screening (Preventive Services) 1983 HepB (1) 1983 COVID-19 Vaccine (#1) 1983 HIV Screening (Preventive Services) 1999 Adult Preventive Visit 2001 DTaP/Tdap/Td (1 - Tdap) 2002 Influenza (#1) 2022 Zoster/Shingles (1 of 2) 2033 HPV Vaccine Aged Out No longer eligi ble based on patient's age to complete this topic HepA Aged Out No longer eligi ble based on patient's age to complete this topic Hib Aged Out No longer eligi ble based on patient's age to complete this topic IPV (Polio) Aged Out No longer eligi ble based on patient's age to complete this topic MCV4 Aged Out No longer eligi ble based on patient's age to complete this topic Pneumococcal Aged Out No longer eligi ble based on patient's age to complete this topic
--- OUTSIDE RECORDS SUMMARY | 2023-04-02 14:01 | XMS_ITS | Referral Summary ---
Author Name Unknown Organization [facility] Address [address] [place] [address] Care Team Providers Care Subscription Crew Leader Name Role Phone Clinic, [facility] Primary Care Pro vider Palak CosbyM, Podiatry [...] 11/18/2021 9:40 AM CDT Plan of Treatment Not on file Care Teams Subscription Crew Leader Relationship Specialty Start Date End Date Clinic, [facility] [address] [place] [address] PCP - General 11/09/21 Palak Cosby, DPM, Podiatry/Foot and Ankle Surgery [address] [address] Assigned Musculoskeletal Provider 11/22/21
== END 2023-04-02 14:00 | disposition home or self-care (01) ==
LOC: US 14:00
PROVIDERS: Visit Provider Registered Nurse
DX: R10.2 Pelvic and perineal pain (principal); N83.202 Unspecified ovarian cyst, left side
CPT/HCPCS: 76830; 76856; 93976

== ENCOUNTER 2023-05-12 09:36 | Outpatient (CLI) | payer BC, SELFPAY ==
--- NOTE | 2023-05-12 09:45 | US_ITS ---
Patient: PERI ROBINS Facility:?[facility] RIS Patient ID:?[id number] Site Patient ID:?[id number]. Site :?1985 Study:?US-Pelvis PELVIS TV-05/12/2023 10:20:13 AM Ordering Physician:?SULTANA PANCHAL Final Report: CLINICAL HISTORY: Left ovarian cyst TECHNIQUE: 2D mejia scale and color Doppler images were acquired of the pelvis using a transvaginal approach. Comparison 04/02/2023 FINDINGS: On transvaginal imaging, the myometrium has a normal uniform echotexture. IUD is present in good position within the endometrial canal. Uterus measures 7.4 x 3.9 x 5.2 cm. The left ovary measures 4.5 x 3.4 x 4.2 cm in size and the right ovary measures 3.6 x 2.3 x 2.0 cm. The ovaries demonstrate normal arterial and venous blood flow on color Doppler analysis. Left ovarian lesion again noted with heterogeneously hypoechoic/hyperechoic areas noted. No internal vascularity. The size has slightly diminished in the interim, now measuring 3.9 x 3.0 x 3.5 cm, previously measuring 4.3 x 3.4 x 3.7 cm. IMPRESSION: Slightly decreased size of the left ovarian lesion now measuring 3.9 cm compared to 4.3 cm on the prior study. No internal vascularity. This is consistent with a low risk lesion. If not surgically excised, consider follow-up MRI. Alternatively, an additional follow-up ultrasound within 6 months would be suggested. Dictated by Kwasi Gallegos MD @ 05/12/2023 12:23:13 PM Signed by:?Kwasi Gallegos MD @05/12/2023 12:23:13 PM (Electronic Signature)
== END 2023-05-12 09:37 | disposition home or self-care (01) ==
LOC: US 09:37
PROVIDERS: Visit Provider Registered Nurse
DX: N83.202 Unspecified ovarian cyst, left side (principal)
CPT/HCPCS: 76830

== ENCOUNTER 2023-10-13 12:48 | Outpatient (CLI) | payer BC, SELFPAY ==
--- OUTSIDE RECORDS SUMMARY | 2023-10-13 12:55 | XMS_ITS | Clinical Summary ---
Author Organization [employer] [facility] Address [place], [place] [address] Care Team Providers Care Clinic Specialist Name Role Phone Pcp, No Primary Care Provider Unavailabl e Allergies Active Allergy Reactions Criticality Noted Date Comments Codeine Rash High 11/20/2020 hallucinations hallucinations Morphine Rash High 11/20/2020 Medications Medication Sig Dispensed Refills Start Date End Date Status dexAMETHasone (DECADRON) 4 mg tabletIndications:Ac maurice non-recurrent sphenoidal sinusitis Take 1 tablet by mouth twice daily for 3 days for congestion 6 Tablet 05/16/2022 Active Social History Tobacco Use Types Packs/Day Years Used Date Smoking Tobacco: Never Smokeless Tobacco: Never Tobacco Cessation:Counseling Given: Not Answered Sex and Gender Information Value Date Recorded Sex Assigned at Not on file Gender Identity Not on file Sexual Orientation Not on file Obstetrics History Last Filed Vital Signs Vital Sign Reading Time Taken Comments Blood Pressure 114/83 05/16/2022 1:12 PM VACCINE CUSTOMER REPRESENTATIVE Pulse 99 05/16/2022 1:12 PM VACCINE CUSTOMER REPRESENTATIVE Temperature 37.3 ??C (99.1 ??F) 05/16/2022 1:12 PM CS T Respiratory Rate 16 05/16/2022 1:12 PM VACCINE CUSTOMER REPRESENTATIVE Oxygen Saturation 100% 05/16/2022 1:12 PM VACCINE CUSTOMER REPRESENTATIVE Inhaled Oxygen Concentration - - Weight 81.6 kg (180 lb) 05/16/2022 1:12 PM VACCINE CUSTOMER REPRESENTATIVE Height 180.3 cm (5' 11) 05/16/2022 1:12 PM VACCINE CUSTOMER REPRESENTATIVE Body Mass Index 25.1 05/16/2022 1:12 PM VACCINE CUSTOMER REPRESENTATIVE Plan of Treatment Health Maintenance Due Date Last Done Comments Tdap 1994 Depression screening for age 12+ 1995 HIV for age 15-65 1998 Hepatitis C screening for ag e 18-79 2001 Tetanus booster 2003 COVID-19 vaccine series (24 season) 2022 02/15/2021 BMI (ht and wt on same day) for age 18+ 05/17/2023 05/16/2022 Influenza for age 9-49 11/14/2023 Pap test for age 21-65 08/17/2025 , 08/17/2022 Pneumococcal series for age 6-64 Aged Out No longer eligible b ased on patient's age to complete this topic Procedures Procedure Name Priority Date/Time Associated Diagnosis Comments HPV THIN PREP Routine 08/17/2022 10:00 AM CDT from Last 3 Months or Most Recently Relevant to Health Maintenance Results * HPV HIGH RISK (08/17/2022 10:00 AM CDT) TYPE 16 Negative Negative 08/20/2022 1:50 PM CDT [facility] TYPE 18 Negative Negative 08/20/2022 1:50 PM CDT [facility] OTHER HIGH RISK TYPES Negative Negative 08/20/2022 1:50 PM CDT [facility] Other (Cervical) 08/17/2022 10:00 AM CDT 08/18/2022 5:57 PM CDT Narrative [facility] - 08/20/2022 1:50 PM CDT HPV types 16, 18, 31, 33, 35, 39, 45, 51, 52, 56, 58, 59, 66 and 68 DNA were undetectable or below the pre-set threshold. Methodology: [place] 4800 HPV Test June Josh [facility] [address] [place] [address], [place] from Last 3 Months or Most Recently Relevant to Health Maintenance Care Teams Clinic Specialist Relationship Specialty Start Date End Date Pcp, No . PCP - General 05/16/22
--- OUTSIDE RECORDS SUMMARY | 2023-10-13 12:55 | XMS_ITS | Clinical Summary ---
Author Organization [facility] Address [address] [place] [address] Care Team Providers Care Paver Layer Name Role Phone [facility], [place] [facility] Pro vider Allergies Active Allergy Reactions Criticality Noted Date Comments Codeine Rash High 11/20/2020 hallucinations Morphine Rash High 11/20/2020 Medications Medication Sig Dispensed Refills Start Date End Date Status Probiotic Product (PROBIOTIC ADVANCED PO) Active Social History Tobacco Use Types Packs/Day [...] 1983 ANNUAL REVIEW OF HM ORDERS 1983 GLUCOSE 1983 MAMMO SCREENING 1983 YEARLY PREVENTIVE VISIT 1983 HIV SCREENING 1998 HEPATITIS C SCREENING 2001 HEPATITIS B IMMUNIZATION (1 of 3 - 19+ 3-dose series) 2002 PAP 01/29/2004 DTAP/TDAP/TD IMMUNIZATION (1 - Tdap) 01/29/2008 COVID-19 Vaccine (2 - 2022-2 4 season) 2022 02/15/2021 LIPID 2023 PHQ-2 (once per calendar year) 2023 INFLUENZA VACCINE (#1) 2023 HPV IMMUNIZATION Aged Out No longer [...] age to complete this topic Care Teams Paver Layer Relationship Specialty Start Date End Date [facility], [facility] [address] [place] [address] PCP - General 11/09/21
--- OUTSIDE RECORDS SUMMARY | 2023-10-13 12:55 | XMS_ITS | Clinical Summary ---
Author Organization [employer] Address [address], [place] [address] Care Team Providers Care Oil Expeller Operator Name Role Phone Unavailable Primary Care Provider [...] for each transition of care or referral. [facility] Allergies Active Allergy Reactions Criticality Noted Date [...] 1983 Hep C Screening (Preventive Services) 1983 HIV Screening (Preventive Services) 1999 Adult Preventive Visit 2001 DTaP/Tdap/Td (1 - Tdap) 2002 HepB (1) 2002 Mammogram 12/09/2021 12/09/2020 COVID-19 Vaccine (1 - 2022-2 4 season) 2022 Influenza (#1) 2023 Zoster/Shingles (1 of 2) 2033 HPV Vaccine [...] Procedure Name Priority Date/Time Associated Diagnosis Comments [facility] MAMMOGRAM DIAG BILAT W 3D MELVIN Routine 12/09/2020 11:01 AM CDT Mass of right axilla Family history of breast cancer from Last 3 Months or Most Recently Relevant to Health Maintenance Results * [facility] Mammogram Diag Bilat W 3D Melvin (12/09/2020 11:01 AM CDT) Anatomical Region Laterality Modality Breast Bilateral Mammography 12/09/2020 11:0 0 AM CDT Impressions 12/09/2020 11:41 AM CDT EXAMINATION: Bilateral tomosynthesis and right axillary ultrasound. HISTORY: Palpable right axillary lump for approximately 4 months. Maternal grandmother and 2 aunts with breast cancer in their 50s to 60s. COMPARISON: None, baseline. FINDINGS: The breasts are heterogeneously dense, which may obscure small masses. No suspicious mammographic finding in either breast. In the right axilla, a small circumscribed mass is noted just deep to the skin in the area of indicated palpability. Normal-appearing right axillary lymph nodes present. Clinically directed right axillary ultrasound demonstrates 2 tiny adjacent benign appearing anechoic cysts measuring 1.4 x 0.2 x 0.7 cm in total. These may be within a residual area of axillary breast tissue. No suspicious sonographic finding. I personally palpated and scanned the area of clinical concern confirming benign findings. IMPRESSION: ACR BI-RADS 2: ??Benign. A palpable right axillary finding corresponds to a tiny benign-appearing cystic area. RECOMMENDATION: Routine yearly mammography beginning at age 40. The results and recommendations of this examination will be communicated to the patient by the [facility] and we will attempt to schedule any recommended imaging follow up with the patient. Narrative Procedure Note Kelby Leahy MD - 12/09/2020 IMPRESSION EXAMINATION: Bilateral tomosynthesis and right axillary ultrasound. HISTORY: Palpable right axillary lump for approximately 4 months. Maternalgrandmother and 2 aunts with breast cancer in their 50s to 60s. COMPARISON: None, baseline. FINDINGS: The breasts are heterogeneously dense, which may obscure smallmasses. No suspicious mammographic finding in either breast. In the rightaxilla, a small circumscribed mass is noted just deep to the skin in thearea of indicated palpability. Normal-appearing right axillary lymph nodespresent. Clinically directed right axillary ultrasound demonstrates 2 tiny adjacentbenign appearing anechoic cysts measuring 1.4 x 0.2 x 0.7 cm in total.These may be within a residual area of axillary breast tissue. Nosuspicious sonographic finding. I personally palpated and scanned the areaof clinical concern confirming benign findings. IMPRESSION: ACR BI-RADS 2: Benign. A palpable right axillary finding corresponds to a tiny benign-appearingcystic area. RECOMMENDATION: Routine yearly mammography beginning at age 40. The results and recommendations of this examination will be communicatedto the patient by the [facility] and we will attempt toschedule any recommended imaging follow up with the patient. Bk Case PA-C RAD DEMETRIO from Last 3 Months or Most Recently Relevant to Health Maintenance
--- OUTSIDE RECORDS SUMMARY | 2023-10-13 12:55 | XMS_ITS | Patient Health Record ---
Author Organization [facility] Address [address] [place] [id number] Care Team Providers Care Fabric Worker Supervisor Name Role Phone JACKI IRELAND Unavailable [phone] Allergies Allergen (clinical drug ingredient) Drug/Non Drug Allergy documented on EMR Reaction Allergy Type Onset Date Status Substance with sulfonamide structure and antibacterial mechanism of action (substance) Sulfa Drugs (uncoded) nausea and vomiting Allergy Active Watermelon Watermelon (uncoded) stomach upset Allergy Active codeine Codeine hives Drug Allergy 11/20/2020 Active [facility] stomach upset Allergy Active morphine Morphine hives Drug Allergy 11/20/2020 Active Results Component Value Reference Range Notes INSULIN Reviewed date:01/06/2023 02:26:20 PM Interpretation: Performing Lab:JACINTO [facility] [employer]Tell[employer], [facility] HospitalJmbjTN[address] Live [facility] Notes/Report: 0 0 0 INSULIN 9.0 Reference Range < or = 18.4 Risk: Optimal < or = 18.4 Moderate NA High >18.4 Adult cardiovascular event risk category cut points (optimal, moderate, high) are based on Insulin Reference Interval studies performed at [facility] in 2021. HEMOGLOBIN A1c Reviewed date:01/06/2023 02:26:20 PM Interpretation: Performing Lab:[facility] [employer], [place] [id number] Live Rivas Notes/Report: 0 0 0 HEMOGLOBIN [...] diagnosis of diabetes in children. According to [place] Diabetes Association (ADA) guidelines, hemoglobin A1c <7.0% represents optimal control in non- diabetic patients. Different metrics may apply to specific patient populations. Standards of Medical Care in Diabetes(ADA). NO COLLECTION DATE RECEIVED. WE HAVE USED THE DATE THE SPECIMEN WAS RECEIVED BY THIS LABORATORY THE COLLECTION DATE. IF THIS IS INCORRECT, PLEASE CONTACT CLIENT SERVICES. PHONE NUMBER: [phone] COMPREHENSIVE METABOLIC PANE L Reviewed date:01/06/2023 10:11:42 AM Interpretation: Performing Lab:[facility]ACIN[facility] [facility] Live [place] Notes/Report: 0 0 0 GLUCOSE [...] 14 10-30 U/L ALT 13 6-29 U/L KETTY ALBICANS AB (IGG,IGA ,IGM) Reviewed date:12/28/2022 09:00:25 AM Interpretation: Performing Lab:ALESSANDRA [facility],[address], [facility] CenterZectoszkorOK[address] Little Juarez MD,PhD,MAUREEN Notes/Report: 0 0 0 [...] analytical performance characteristics have been determined by [facility]. It has not been cleared or approved by FDA. This assay has been validated pursuant to the CLIA regulations and is used for clinical purposes. HISTAMINE, PLASMA Reviewed date:12/23/2022 08:59:22 AM Interpretation: Performing Lab:ALESSANDRA [facility],[address] [facility] Little Juarez MD,PhD,MAUREEN Notes/Report: 0 0 0 0 0 0 0 0 0 0 0 0 0 0 HISTAMINE, PLASMA <1.5 < OR = 1.8 ng/mL This test was performed using a kit that has not been cleared or approved by the FDA. The analytical performance characteristics of this test have been determined by [facility]. This test should not be used for diagnosis without confirmation by other medically established means. QUESTASSURED 25-OH VIT D, (D 2,D3), LC/MS/MS Reviewed date:12/17/2022 08:45:53 AM Interpretation: Performing Lab:[facility]TO [facility] [facility] Live [place] Notes/Report: 0 0 0 0 [...] D, (D2,D3), LC/MS/MS is recommended: order code [id number] (patients >2yrs). See Note 1 Note 1 For additional information, please refer to http://education.Lust have it!.openPeople/faq/QYG988 (This link is being provided for informational/ educational purposes only.) T3, FREE Reviewed date:12/17/2022 08:30:36 AM Interpretation: Performing Lab:JACINTO [employer], [id number] Live Rivas Notes/Report: 0 0 0 0 0 0 0 0 0 0 0 0 0 0 T3, FREE 3.3 2.3-4.2 pg/mL TSH Reviewed date:12/17/2022 08:45:29 AM Interpretation: Performing Lab:JACINTO POISeriositytedivorce360, kalideaLdgfIU[address] Live Rivas Notes/Report: 0 0 0 0 0 0 0 0 0 0 0 0 0 0 TSH 1.54 Reference Range > or = 20 Years 0.40-4.50 Ranges First trimester 0.26-2.66 Second trimester 0.55-2.73 Third trimester 0.43-2.91 CORTISOL, TOTAL Reviewed date:12/17/2022 08:30:36 AM Interpretation: Performing Lab:JACINTO [employer], [id number] Live Rivas Notes/Report: 0 0 0 0 0 0 0 0 0 0 0 0 0 0 CORTISOL, TOTAL 11.2 Reference Range: For 8 a.m.(7-9 a.m.) Specimen: 4.0-22.0 Reference Range: For 4 p.m.(3-5 p.m.) Specimen: 3.0-17.0 * Please interpret above results accordingly * T4, FREE Reviewed date:12/17/2022 08:45:29 AM Interpretation: Performing Lab:[place] [address] Live [place]ivas Notes/Report: 0 0 0 0 0 0 0 0 0 0 0 0 0 0 T4, FREE 1.2 0.8-1.8 ng/dL VITAMIN B12 Reviewed date:12/17/2022 08:30:36 AM Interpretation: Performing Lab:[place] [address] Live [place]ivas Notes/Report: 0 0 0 0 0 0 0 0 0 0 0 0 0 0 VITAMIN B12 750 898-8682 pg/mL FOLATE, SERUM Reviewed date:12/17/2022 08:30:36 AM Interpretation: Performing Lab:[place] [address] Live Rivas Notes/Report: 0 0 0 0 0 0 0 0 0 0 0 0 0 0 FOLATE, SERUM 18.1 Reference Range Low: <3.4 Borderline: 3.4-5.4 Normal: >5.4 DHEA SULFATE Reviewed date:12/17/2022 08:30:36 AM Interpretation: Performing Lab:[place] [address] Live [place]ivas Notes/Report: 0 0 0 0 0 0 0 0 0 0 0 0 0 0 DHEA SULFATE 194 19-237 mcg/dL THYROID PEROXIDASE ANTIBODIE S Reviewed date:12/17/2022 10:52:42 AM Interpretation: Performing Lab:[place] [address] Live [place] Notes/Report: 0 0 0 0 0 0 0 0 0 0 0 0 0 0 THYROID PEROXIDASE ANTIBODIES 35 <9 IU/mL THYROGLOBULIN PANEL Reviewed date:12/17/2022 10:52:42 AM Interpretation: Performing Lab:[place] [address] Live [place]ivas Notes/Report: 0 0 0 0 0 0 0 0 0 0 0 0 0 0 THYROGLOBULIN ANTIBODIES 1 < or = 1 IU/mL THYROGLOBULIN 18.2 Reference Range: Intact Thyroid 2.8-40.9 Athyrotic <0.1 Note: Abnormal flagging is based on the reference interval for patients with intact thyroid. This test was performed using the Ivan [place] chemiluminescent method. Values obtained from different assay methods cannot be used interchangeably. Thyroglobulin levels, regardless of value, should not be interpreted as absolute evidence of the presence or absence of disease. For additional information, please refer to http://education.S[employer]hire Innovation/faq/OPV274 (This link is being provided for informational/ educational purposes only.) CELIAC DISEASE COMPREHENSIVE PANEL Reviewed date:12/18/2022 11:55:52 AM Interpretation: Performing Lab:JACINTO [facility]-Buru Buru5 Startupi, [id number] Live Rivas Notes/Report: 0 0 0 0 0 0 0 0 0 0 0 0 0 0 TISSUE TRANSGLUTAMINASE AB, IGA <1.0 Value Interpretation ----- <15.0 Antibody not detected > or = 15.0 Antibody detected IMMUNOGLOBULIN A 203 47-310 mg/dL IRON, TIBC AND FERRITIN PANE L Reviewed date:12/17/2022 08:30:36 AM Interpretation: Performing Lab:JAC[facility]TO [facility]-[address] [place], [id number] Live Rivas Notes/Report: 0 0 0 0 0 0 0 0 0 0 0 0 0 0 IRON, TOTAL 98 40-190 mcg/dL IRON BINDING CAPACITY 362 250-450 mc g/dL (calc) % SATURATION 27 16-45 % (calc) FERRITIN 20 16-154 ng/mL Reason For Referral No Information Medications Medication SIG (Take, Route, Fr equency, Duration) Notes Start Date End Date Status Vitamin D3 + K 5,000IU 1 capsule by mout h once daily for 90 days 01/05/2023 Active Coromega 650mg Active Chelated iron 30mg one tablet by mouth daily during menstrual cycles 01/05/2023 Active Social History Tobacco Use: Social History Observation Description Date Details (start date - stop date) Former Smoker NA - NA Tobacco Use/Smoking Question Answer Notes Are you [...] Never (0 point) Points 2 Interpretation Negative Problems Problem Type SNOMED Code ICD Code Onset Dates Problem Status W/U Status Risk Notes Problem Asthma (906024633) Asthma (J45.909) Active confirmed Problem Fatigue (40143417) Fatigue (R53.83) Active confirmed Problem Weight gain (4868442) Weight gain (R63.5) Active confirmed Problem Vitamin D deficiency (05911944) Vitamin D deficiency (E55.9) Active confirmed Problem Generalized anxiety disorder (38250969) Generalized anxiety disorder (F41.1) Active confirmed Problem Thyroid function tests abnormal (909932144) 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 Problem Stress (22258685) Stress (F43.9) Active confirm ed Problem Seasonal allergy (061575470) Seasonal allergies (J30.2) Active confirmed Problem Generalized anxiety disorder (92447134) SURESH (generalized anxiety disorder) (F41.1) Active confirmed Problem Attention deficit hyperactivity disorder (384531672) Adult ADHD (F90.9) Active confirmed Vital Signs Temperature 98.3 degrees Fahrenheit 12/16/2022 Blood pressure diastolic 70 mm Hg 01/05/2023 Height 71 in 01/05/2023 Blood pressure systolic 118 mm Hg 01/05/2023 Weight 194.8 lbs 12/16/2022 BMI 27.17 kg/m2 12/16/2022 Encounters Encounter Location Date Provider Diagnosis Melissa Hyman [address] [facility] [address] [place] [address] 12/16/2022 JACKI IRELAND Weight gain R63.5 ; Generalized anxiety disorder F41.1 ; Adult ADHD F90.9 ; Fatigue R53.83 ; Seasonal allergies J30.2 ; Stress F43.9 and GI symptoms R19.8 [facility] [address] [facility] [address] [place] [address] 12/16/2022 JACKI IRELAND Fatigue R53.83 ; GI symptoms R19.8 ; Stress F43.9 and Seasonal allergies J30.2 [facility] [address] [facility] [address] [place] [address] 01/05/2023 JACKI IRELAND Fatigue R53.83 ; GI symptoms R19.8 ; Stress F43.9 ; Seasonal allergies J30.2 ; 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 In high states or jail stress hormones can become unbalanced. DHEA: 194 [...] occur, please call or message your provider. https://www.AdTrib/pro duct/candicid-forte https://nutritionre view.org//cand qtt-ervnl-wkenbsbqpo- program-part2/ Discussed avoiding gluten in diet. Recommended to read all labels and avoid gluten foods including wheat, rye, barley. Non gluten grains are rice, flax, oats, quinoa and others. https://minicabit/ 01/05/2023 Anti-TPO antibodies present (ICD-10 - R89.4) [...] IU + K2 daily. 12/16/2022 Other -The [employer] company may be billing your insurance for [...] to review and discuss treatment plan accordingly Plan Of Treatment No Information Insurance Providers Payer Name Payer Address Payer Phone Subscriber Number Group Number Insured Name Patient Relationship to Insured Coverage Start Date Coverage End Date [facility] [employer] [address] [address] [place], [place] [id number] PERI ROBINS Self - patient is the insured 8 Medical (General) History Medical History History ICD Code Asthma J45.909 Seasonal allergies J30.2 SURESH (generalized anxiety disorder) F41.1 Adult ADHD F90.9 Surgical History Surgery Date(Month/Year) hemorrhoidectomy 2008 tonsillectomy and adenoidectomy Knee Surgery (Anterior Cruciate Ligament Repair) 2001 & 2010
--- OUTSIDE RECORDS SUMMARY | 2023-10-13 12:55 | XMS_ITS | Referral Summary ---
Author Organization [facility] Address [address] [place] [address] Care Team Providers Care Business Project Analyst Name Role Phone Clinic, [facility] Pro vider Allergies Active Allergy [...] of Treatment Not on file Care Teams Business Project Analyst Relationship Specialty Start Date End Date [facility], [facility] [address] [place] [address] PCP - General 11/09/21
--- NOTE | 2023-10-13 13:00 | CRLHL7_ITS ---
For Patients: As a result of the Century Cures Act, medical imaging exams and procedure reports are released immediately into your electronic medical record. You may view this report before your referring provider. If you have questions, please contact your health care provider. CLINICAL HISTORY: Follow-up left ovarian cyst TECHNIQUE: 2D mejia scale and color Doppler images were acquired of the pelvis using a transvaginal approach. Comparison 05/12/2023 FINDINGS: On transvaginal imaging, the myometrium has a normal uniform echotexture. The uterus measures 6.3 x 4.2 x 5.1 cm. The endometrial lining measures 12 mm in thickness. IUD is present in good position. The left ovary measures 6.0 x 3.4 x 3.3 cm in size and the right ovary measures 2.3 x 3.0 x 2.4 cm. The ovaries demonstrate normal arterial and venous blood flow on color Doppler analysis. There are no suspicious fluid collections within the cul-de-sac. No significant interval change in the hypoechoic lesion within the left ovary measuring 3.5 x 2.9 x 3.4 cm. No internal blood flow is present. There is also a small heterogeneous nonvascular structure within the right ovary measuring 1.7 x 1.5 x 1.5 cm. IMPRESSION: No significant interval change in the nonvascular hypoechoic left ovarian lesion measuring 3.5 cm, most likely representing an endometrioma. Small additional endometrioma or hemorrhagic cyst right ovary measuring 1.7 cm. Dictated by Kwasi Gallegos MD @ 10/15/2023 6:10:37 AM (Electronically Signed)
== END 2023-10-13 12:49 | disposition home or self-care (01) ==
LOC: US 12:49
PROVIDERS: Visit Provider Registered Nurse
DX: N83.202 Unspecified ovarian cyst, left side (principal)
CPT/HCPCS: 76830

== ENCOUNTER 2023-11-04 14:36 | Outpatient (CLI) | payer BC, SELFPAY ==
--- OUTSIDE RECORDS SUMMARY | 2023-11-04 14:38 | XMS_ITS | Clinical Summary ---
Author Organization [facility] Address [address], [place] [address] Care Team Providers Care Template Checker Name Role Phone Unavailable Primary Care Provider [...] for each transition of care or referral. [facility] Allergies Active Allergy Reactions Criticality Noted Date [...] 1983 Hep C Screening (Preventive Services) 1983 MTM Covered 1983 HIV Screening (Preventive Services) 1999 Adult [...] Procedure Name Priority Date/Time Associated Diagnosis Comments [facility] MAMMOGRAM DIAG BILAT W 3D MELVIN Routine 12/09/2020 11:01 AM CDT Mass of right axilla Family history of breast cancer from Last 3 Months or Most Recently Relevant to Health Maintenance Results * [facility] Mammogram Diag Bilat W 3D Melvin [...] be communicated to the patient by the [facility] and we will attempt to schedule any [...] will be communicatedto the patient by the [facility] and we will attempt toschedule any recommended imaging follow up with the patient. Bk ATKINSON from Last 3 Months or Most Recently Relevant to Health Maintenance
--- OUTSIDE RECORDS SUMMARY | 2023-11-04 14:38 | XMS_ITS | Clinical Summary ---
Author Organization [facility] Address [place], [place] [address] Care Team Providers Care Nutritional Assistant Name Role Phone Pcp, No Primary Care [...] Comments Blood Pressure 114/83 05/16/2022 1:12 PM BUS DRIVER Pulse 99 05/16/2022 1:12 PM BUS DRIVER Temperature 37.3 ??C (99.1 ??F) 05/16/2022 1:12 PM CS T Respiratory Rate 16 05/16/2022 1:12 PM BUS DRIVER Oxygen Saturation 100% 05/16/2022 1:12 PM BUS DRIVER Inhaled Oxygen Concentration - - Weight 81.6 kg (180 lb) 05/16/2022 1:12 PM BUS DRIVER Height 180.3 cm (5' 11) 05/16/2022 1:12 PM BUS DRIVER Body Mass Index 25.1 05/16/2022 1:12 PM BUS DRIVER Plan of Treatment Health Maintenance Due Date [...] 16 Negative Negative 08/20/2022 1:50 PM CDT [facility] TYPE 18 Negative Negative 08/20/2022 1:50 PM CDT [facility] OTHER HIGH RISK TYPES Negative Negative 08/20/2022 1:50 PM CDT [facility] Other (Cervical) 08/17/2022 10:00 AM CDT 08/18/2022 5:57 PM CDT Narrative [facility] - 08/20/2022 1:50 PM CDT HPV types 16, 18, 31, 33, 35, 39, 45, 51, 52, 56, 58, 59, 66 and 68 DNA were undetectable or below the pre-set threshold. Methodology: [place] 4800 HPV Test June Josh [facility] [address] [place] [address], [place] from Last 3 Months or Most Recently Relevant to Health Maintenance Care Teams Nutritional Assistant Relationship Specialty Start Date End Date Pcp, No . PCP - General 05/16/22
--- OUTSIDE RECORDS SUMMARY | 2023-11-04 14:38 | XMS_ITS | Clinical Summary ---
Author Organization [facility] Address [address] [place] [address] Care Team Providers Care Transportation Supervisor Name Role Phone [facility] Care Pro vider Allergies Active Allergy [...] age to complete this topic Care Teams Transportation Supervisor Relationship Specialty Start Date End Date [facility], [facility] [address] [place] [address] PCP - General 11/09/21
--- OUTSIDE RECORDS SUMMARY | 2023-11-04 14:38 | XMS_ITS | Referral Summary ---
Author Organization [place] Address [address] [place] [address] Care Team Providers Care Hand Or Machine Paster Name Role Phone Clinic, [facility] [place] Primary Care Pro vider Allergies Active Allergy [...] of Treatment Not on file Care Teams Hand Or Machine Paster Relationship Specialty Start Date End Date [facility], [facility] [address] [place] [address] PCP - General 11/09/21
== END 2023-11-04 14:37 | disposition home or self-care (01) ==
PROVIDERS: Visit Provider Physician Assistant
DX: Z01.419 Encounter for gynecological examination (general) (routine) without abnormal findings (principal); F41.9 Anxiety disorder, unspecified; Z13.29 Encounter for screening for other suspected endocrine disorder; Z13.228 Encounter for screening for other metabolic disorders
CPT/HCPCS: 82306; 84443

== ENCOUNTER 2024-01-26 09:07 | Outpatient (CLI) | payer BC, SELFPAY ==
--- OUTSIDE RECORDS SUMMARY | 2024-01-26 09:10 | XMS_ITS | Clinical Summary ---
Author Organization [place] Address [address] [place] [address] Care Team Providers Care Steam Box Tender Name Role Phone Clinic, [facility] Primary Care Pro vider Allergies Active Allergy Reactions Criticality Noted Date Comments Codeine Rash High 11/20/2020 hallucinations Morphine Rash High 11/20/2020 Medications Probiotic Product (PROBIOTIC ADVANCED PO) Active Social History Tobacco Use Types Packs/Day Years Used Date Smoking Tobacco: Never Smokeless Tobacco: Never Adolescent Education Answer Date Record ed Getting School Help Needed Not on file 12/05 Comments No Sex and Gender Information Value Date Recorded Sex Assigned at Not on file Legal Sex Female 1:03 AM CDT Gender Identity Not on file Sexual Orientation [...] 01/29/2004 DTAP/TDAP/TD IMMUNIZATION (1 - Tdap) 01/29/2008 LIPID 2023 PHQ-2 (once per calendar year) 2023 COVID-19 Vaccine (2 - 2023-2 5 season) 2023 02/15/2021 INFLUENZA VACCINE (#1) 2023 RSV VACCINE (1 - 1-dose 75+ series) 2058 HPV IMMUNIZATION Aged Out No longer e [...] on patient's age to complete this topic Insurance [facility] [employer] Care Teams Steam Box Tender Relationship Specialty Start Date End Date Clinic, [facility] [address] [place] [address] PCP - General 11/09/21
--- OUTSIDE RECORDS SUMMARY | 2024-01-26 09:10 | XMS_ITS | Clinical Summary ---
Author Organization [facility] Address [address], [place] [address] Care Team Providers Care Motor Expert Name Role Phone Unavailable Primary Care Provider [...] for each transition of care or referral. [facility] Allergies Active Allergy Reactions Criticality Noted Date [...] Mammogram 12/09/2021 12/09/2020 COVID-19 Vaccine (1 - 2023-2 5 season) 2023 Influenza (#1) 2023 Zoster/Shingles (1 of 2) [...] on patient's age to complete this topic Infant RSV Aged Out No longer eligi ble based on patient's age to complete this topic MCV4 Aged Out No longer eligi ble based on patient's age to complete this topic Pneumococcal Aged Out No longer eligi ble based on patient's age to complete this topic Procedures Procedure Name Priority Date/Time Associated Diagnosis Comments [facility] MAMMOGRAM DIAG BILAT W 3D MELVIN Routine 12/09/2020 11:01 AM CDT Mass of right axilla Family history of breast cancer from Last 3 Months or Most Recently Relevant to Health Maintenance Results * [facility] Mammogram Diag Bilat W 3D Melvin (12/09/2020 [...] be communicated to the patient by the [facility] and we will attempt to schedule [...] will be communicatedto the patient by the [facility] and we will attempt toschedule any recommended imaging follow up with the patient. Bk Case PA-C RAD DEMETRIO from Last 3 Months or Most Recently Relevant to Health Maintenance
--- OUTSIDE RECORDS SUMMARY | 2024-01-26 09:10 | XMS_ITS | Referral Summary ---
Author Organization [place] Address [address] [place] [address] Care Team Providers Care Room Service Bellhop Name Role Phone Clinic, [facility] Primary Care Pro vider Allergies Active Allergy [...] CDT Plan of Treatment Not on file Insurance [facility] [employer] [place] [address] Care Teams Room Service Bellhop Relationship Specialty Start Date End Date [facility], [facility] [id number] [place] [address] PCP - General 11/09/21
--- OUTSIDE RECORDS SUMMARY | 2024-01-26 09:10 | XMS_ITS | Clinical Summary ---
Author Organization [facility] [facility] Address [place], [place] [address] Care Team Providers Care Back Hoe Operator Name Role Phone Pcp, No Primary Care [...] Comments Blood Pressure 114/83 05/16/2022 1:12 PM ADMINISTRATIVE ASSISTANT RECEPTIONIST Pulse 99 05/16/2022 1:12 PM ADMINISTRATIVE ASSISTANT RECEPTIONIST Temperature 37.3 ??C (99.1 ??F) 05/16/2022 1:12 PM CS T Respiratory Rate 16 05/16/2022 1:12 PM ADMINISTRATIVE ASSISTANT RECEPTIONIST Oxygen Saturation 100% 05/16/2022 1:12 PM ADMINISTRATIVE ASSISTANT RECEPTIONIST Inhaled Oxygen Concentration - - Weight 81.6 kg (180 lb) 05/16/2022 1:12 PM ADMINISTRATIVE ASSISTANT RECEPTIONIST Height 180.3 cm (5' 11) 05/16/2022 1:12 PM ADMINISTRATIVE ASSISTANT RECEPTIONIST Body Mass Index 25.1 05/16/2022 1:12 PM ADMINISTRATIVE ASSISTANT RECEPTIONIST Plan of Treatment Health Maintenance Due Date Last Done Comments Tdap 1994 Depression screening for age 12+ 1995 HIV for age 15-65 1998 Hepatitis C screening for ag e 18-79 2001 Tetanus booster 2003 BMI (ht and wt on same day) for age 18+ 05/17/2023 05/16/2022 COVID-19 vaccine series ( season) 2023 02/15/2021 Influenza for age 9-49 11/14/2023 Pap test for age 21-65 08/17/2025 , 08/17/2022 Pneumococcal series for age 6-64 Aged Out No longer eligible b ased on patient's age to complete this topic Procedures Procedure Name Priority Date/Time Associated Diagnosis Comments HPV HIGH RISK Routine 08/17/2022 10:00 AM CDT from Last 3 Months or Most Recently Relevant to Health Maintenance Results * HPV HIGH RISK (08/17/2022 10:00 AM CDT) TYPE 16 Negative Negative 08/20/2022 1:50 PM CDT [facility] TYPE 18 Negative Negative 08/20/2022 1:50 PM CDT [facility] OTHER HIGH RISK TYPES Negative Negative 08/20/2022 1:50 PM CDT [facility] Other (Cervical) 08/17/2022 10:00 AM CDT 08/18/2022 5:57 PM CDT Narrative [facility] - 08/20/2022 1:50 PM CDT HPV types 16, 18, 31, 33, 35, 39, 45, 51, 52, 56, 58, 59, 66 and 68 DNA were undetectable or below the pre-set threshold. Methodology: [place]00 HPV Test June Josh [facility] [address] [place] [address], [place] from Last 3 Months or Most Recently Relevant to Health Maintenance Care Teams Back Hoe Operator Relationship Specialty Start Date End Date Pcp, No . PCP - General 05/16/22
--- OUTSIDE RECORDS SUMMARY | 2024-01-26 09:10 | XMS_ITS | Patient Health Record ---
Author Organization [facility] Address [address] [place] [id number] Support Name Relationship Address Phone isiah escobar Emergency Contact [address] [place] [address] Unavailable PERI ESCOBAR Guarantor Unknown [phone] Allergies Allergen (clinical drug ingredient) Drug/Non Drug Allergy documented on EMR Reaction Allergy Type Onset Date Status Substance with sulfonamide structure and antibacterial mechanism of action (substance) Sulfa Drugs (uncoded) nausea and vomiting Allergy Active Watermelon Watermelon (uncoded) stomach upset Allergy Active codeine Codeine hives Drug Allergy 11/20/2020 Active Otho Otho stomach upset Allergy Active morphine Morphine hives Drug Allergy 11/20/2020 Active Reason For Referral No Information Medications Medication [...] Status W/U Status Risk Notes Problem Asthma (525534193) Asthma (J45.909) Active confirmed Problem Fatigue (72770619) Fatigue (R53.83) Active confirmed Problem Weight gain (076622192) Weight gain (R63.5) Active confirmed Problem Vitamin D deficiency (63480042) Vitamin D deficiency (E55.9) Active confirmed Problem Generalized anxiety disorder (91607377) Generalized anxiety disorder (F41.1) Active confirmed Problem Thyroid function tests abnormal (727772829) 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 Federal [address] [address] [place], [place] [id number] JULIENNE PERI Self - patient is the insured 8 Medical (General) History Medical History History ICD Code Asthma J45.909 Seasonal allergies J30.2 SURESH (generalized anxiety disorder) F41.1 Adult ADHD F90.9 Surgical History Surgery Date(Month/Year) hemorrhoidectomy 2009 tonsillectomy and adenoidectomy Knee Surgery (Anterior Cruciate Ligament Repair) 2001 & 2010
--- NOTE | 2024-01-26 09:15 | CRLHL7_ITS ---
For Patients: As a result of the Century Cures Act, medical imaging exams and procedure reports are released immediately into your electronic medical record. You may view this report before your referring provider. If you have questions, please contact your health care provider. BILATERAL SCREENING MAMMOGRAM WITH COMPUTER-AIDED DETECTION AND TOMOSYNTHESIS TECHNIQUE: CC and MLO views were obtained. These mammographic images have been obtained using full-field digital technique. These mammographic images were interpreted with the benefit of computer-aided detection. Breast Tomosynthesis was used in this interpretation. COMPARISON FILM: 02/24/23, 02/16/23. FINDINGS: The breasts are heterogeneously dense, which may obscure small masses. IMPRESSION: There is no radiographic evidence for malignancy. ASSESSMENT: BI-RADS Category 2: Benign RECOMMENDATION: Routine screening mammogram in 1 year. A lay language report of this examination will be provided to the patient. Kwasi Gallegos M.D. Diagnostic Radiologist [email or web address] SP/Dictated by: Kwasi Gallegos MD @ 01/26/2024 11:05:00 AM (Electronically Signed)
== END 2024-01-26 09:08 | disposition home or self-care (01) ==
LOC: MAMMO 09:08
PROVIDERS: Visit Provider Physician Assistant
DX: Z12.31 Encounter for screening mammogram for malignant neoplasm of breast (principal); R92.333 Mammographic heterogeneous density, bilateral breasts
CPT/HCPCS: 77063; 77067

== ENCOUNTER 2024-04-18 10:04 | Outpatient (CLI) | payer BC, SELFPAY ==
--- NOTE | 2024-04-18 10:15 | CRLHL7_ITS ---
For Patients: As a result of the Century Cures Act, medical imaging exams and procedure reports are released immediately into your electronic medical record. You may view this report before your referring provider. If you have questions, please contact your health care provider. INDICATION: Unspecified ovarian cyst- left side COMPARISON: US 10-13-2023, 05-12-2023, 04-02-2023 TECHNIQUE: 2D mejia scale and color Doppler images were acquired of the pelvis using a transabdominal and transvaginal approach. FINDINGS: Sonographic images demonstrate a normal size and smooth outer contour of the uterus. Uterus measures 7.3 cm in length by 3.9 cm in AP diameter by 4.8 cm in transverse dimension. The myometrium has a normal uniform echotexture. The endometrial lining is not thickened. IUD is present in good position within the endometrial canal. The right ovary measures 3.7 x 2.1 x 1.6 cm in size and the left ovary measures 4.2 x 3.4 x 3.7 cm. The ovaries demonstrate normal arterial and venous blood flow on color Doppler analysis. There are no suspicious fluid collections within the cul-de-sac. Nonvascular heterogeneous structure within the left ovary is similar measuring 3.6 x 2.6 x 3.3 cm, previously measuring 3.5 cm. IMPRESSION: No significant interval change in the probable endometrioma versus dermoid left ovary measuring 3.6 cm. Dictated by Kwasi Gallegos MD @ 04/18/2024 11:15:14 AM (Electronically Signed)
== END 2024-04-18 10:05 | disposition home or self-care (01) ==
LOC: US 10:05
PROVIDERS: Visit Provider Registered Nurse
DX: N83.202 Unspecified ovarian cyst, left side (principal)
CPT/HCPCS: 76830; 76856

== ENCOUNTER 2024-06-06 11:50 | Outpatient (CLI) | payer BC, SELFPAY | END 2024-06-06 11:51 | disposition home or self-care (01) | PROVIDERS: Visit Provider Nurse Practitioner | DX: R07.9 Chest pain, unspecified (principal) | CPT/HCPCS: 84484; 85379 ==

== ENCOUNTER 2024-09-01 09:38 | Outpatient (CLI) | payer BC, SELFPAY | END 2024-09-01 09:39 | disposition home or self-care (01) | PROVIDERS: PCP Registered Nurse; Visit Provider Registered Nurse | DX: R53.83 Other fatigue (principal); M25.50 Pain in unspecified joint | CPT/HCPCS: 82306; 82728; 84443; 86140; 86618; 87468; 87469; 87484; 87798 ==

== ENCOUNTER 2025-03-01 08:23 | Outpatient (CLI) | payer BC, SELFPAY | END 2025-03-01 08:24 | disposition home or self-care (01) | PROVIDERS: PCP Physician Assistant Medical; Visit Provider Physician Assistant | DX: L65.9 Nonscarring hair loss, unspecified (principal); R63.4 Abnormal weight loss; Z68.27 Body mass index [BMI] 27.0-27.9, adult | CPT/HCPCS: 82728; 84443 ==